=== PATIENT | female | born 1990 | race Asian ===

== ENCOUNTER 2023-12-11 12:05 | Emergency (ER) | payer OTHER, SELFPAY ==
[2023-12-11 12:08] VITALS: BP 121/91
[2023-12-11 12:35] LABS: % Basophils 0.1 % (0-2); % Eosinophils 5.3 % (0-6); % Immature Granulocytes 0.6 % (0-0.5); % Lymphocytes 19.3 % (20.5-51.1); % Monocytes 7.5 % (1.7-9.3); % Neutrophils 67.2 % (42.2-75.2); Absolute Eosinophils 0.4 10^3/uL (0-0.7); Absolute Lymphocytes 1.3 10^3/uL (1.2-3.4); Absolute Monocytes 0.5 10^3/uL (0.1-0.6); Absolute Neutrophils 4.7 10^3/uL (1.4-6.5); Hematocrit 34.6 % (37.0-47.0); Hemoglobin 11.2 g/dL (12.0-16.0); Mean Corp Hgb Conc. 32.4 g/dL (33.0-37.0); Mean Corpuscular Hgb 27.1 pg (27.0-31.0); Mean Corpuscular Volume 83.8 fL (81.0-99.0); Mean Platelet Volume 11.7 fL (7.4-10.4); Nucleated Red Blood Cells % 0 %; Platelet Count 237 10^3/uL (130-400); Red Blood Cell Count 4.13 10^6/uL (4.20-5.40); Red Cell Dist. Width 13.2 % (11.5-14.5); White Blood Cell Count 6.9 10^3/uL (4.8-10.8)
[2023-12-11 12:49] LABS: ALT (SGPT) 15 U/L (0-35); AST (SGOT) 24 U/L (14-36); Albumin 3.8 g/dl (3.5-5.0); Alkaline Phosphatase 107 U/L (38-126); Blood Urea Nitrogen 6 mg/dl (7-17); Calcium 9.1 mg/dl (8.4-10.2); Carbon Dioxide 17 mmol/L (22-30); Chloride 106 mmol/L (98-107); Glucose 107 mg/dl (70-99); Potassium 3.6 mmol/L (3.5-5.1); Sodium 131 mmol/L (135-145); Total Bilirubin 0.4 mg/dl (0.2-1.3); Total Protein 6.6 g/dl (6.3-8.2); eGFR > 60.00
--- NOTE | 2023-12-11 13:21 | ED.GENMED ---
History of Present Illness
<Garima Everett SOURCING COORDINATOR - Last Filed: 12/11/23 16:54>
General
Chief Complaint: Breathing Problem
Source: patient
Exam Limitations: none
Time Seen by Provider: 12/11/23 13:19
Nursing documentation reviewed up to this point in time: agreed with
Travel History
Have you had any contact with someone who has COVID-19?: No
Do you have any symptoms of coronavirus? Fever > 100 degrees, chills, cough, shortness of breath, sore throat, loss of taste or smell, muscle aches, or headache?: No
History of Present Illness
History of Present Illness:
33-year-old female 36 weeks and 3 days presents from [facility] for shortness of breath and dyspnea on exertion for the past 4 days. Breathing is worse at night and with wheezing. Used Albuterol inhaler past 3
nights with relief but last night it didn't help and she was up all night due to SOB. Feels palpitations, chest feels tight but no CP, States HR is typically in the 70's, has been in the 90's at home.
She states about 10 yrs ago had one 'asthma attack,' none since
Past History
<Garima Everett, SOURCING COORDINATOR - Last Filed: 12/11/23 16:54>
Past History
ED Past Medical History: None
ED Past Surgical History: None
Social History
Tobacco: Non-smoker
Alcohol: None
Personal:
Living: with family
Employment: Employed
Review of Systems
<Garima Everett, SOURCING COORDINATOR - Last Filed: 12/11/23 16:54>
Review of Systems
Allergies reviewed?: Yes
All Other Systems: ROS reviewed and negative except as documented in HPI and ROS
Constitutional: Reports fatigue; Denies fever
EENT: Denies sore throat
Respiratory: Reports trouble breathing; Denies cough
Cardiac: Reports chest pain (Chest feels 'tight.') and palpitations; Denies diaphoresis
ABD/GI: Denies abdominal pain, nausea, vomiting or diarrhea
: Denies dysuria, difficulty voiding or urgency
Musculoskeletal: Reports no symptoms
Skin: Reports no symptoms
Neurological: Reports no symptoms
Phy Exam
<Garima Everett, SOURCING COORDINATOR - Last Filed: 12/11/23 16:54>
Physical Exam
Physical Exam:
GENERAL: No acute distress. A&Ox3.
CONSTITUTIONAL: Afebrile.
EYES: clear, conjunctivae normal
ENMT: moist mucus membranes, Pharynx nl
RESPIRATORY: Regular respirations, mildly labored, lungs clear no wheezing. Pulse ox 100% RA
CARDIOVASCULAR: Regular rate and rhythm, no murmurs, no rubs. HR116
GI: Soft, nontender, normal BS, consitent with
MUSCULOSKELETAL: Moves with ease. Well perfused.
SKIN: Warm, dry, pink
PSYCH: Normal mood and affect. Well kept, interactive and appropriate
NEUROLOGIC: Awake, alert and oriented. No focal neurological deficits
Course
<Garima Everett, SOURCING COORDINATOR - Last Filed: 12/11/23 16:54>
Orders/Labs/Results
Orders:
Orders
12/11/23 12:11
EKG [Electrocardiogram (*1)] Urgent
Reason for Study: Shortness of Breath
EKG- Treatment ONCE
12/11/23 12:22
Type+Screen Urgent
CMP [Comprehensive Metabolic Panel] Urgent
Complete Blood Count/With Diff Urgent
12/11/23 13:26
Ipratropium/Albuterol Sulfate [Duoneb] 3 ml INH R NOW STA
12/11/23 13:47
D-Dimer Urgent
12/11/23 14:09
CT Chest Pe Study Urgent
Comment:
Reason For Exam: tachypnea, SOB, CP, tachycardia
12/11/23 15:46
NT-proBNP Urgent
Troponin I Urgent
12/11/23 16:24
Non-stress Test Urgent
Reason for Exam: OB Dr. Mckeon requested
Abnormal Lab Results
12/11/23 12/11/23
12: 13:47
RBC 4.13 L 10^6/uL
(4.20-5.40)
Hgb 11.2 L g/dL
(12.0-16.0)
Hct 34.6 L %
(37.0-47.0)
MCHC 32.4 L g/dL
(33.0-37.0)
MPV 11.7 H fL
(7.4-10.4)
Immature Gran % 0.6 H %
(0-0.5)
Lymphocytes % 19.3 L %
(20.5-51.1)
D-Dimer 0.96 H ug/mlFEU
(0.00-0.50)
Sodium 131 L mmol/L
(135-145)
Carbon Dioxide 17 L mmol/L
(22-30)
BUN 6 L mg/dl
(7-17)
Creatinine 0.4 L mg/dL
(0.6-1.0)
Glucose 107 H mg/dl
(70-99)
12/11/23 12:22
12/11/23 12:22
Vital Signs
Initial and Last Documented VS:
Initial Vital Signs
Temp Pulse Resp BP Pulse Ox
97.9 F 116 18 121/91 100
12/11/23 12:08 12/11/23 12:08 12/11/23 12:08 12/11/23 12:08 12/11/23 12:08
Last Documented Vital Signs
Temp Pulse Resp BP Pulse Ox
97.9 F 98 17 121/91 95
12/11/23 12:08 12/11/23 14:45 12/11/23 14:45 12/11/23 12:08 12/11/23 14:45
Window Installation Subcontractor consulted with Physician
Window Installation Subcontractor consulted with physician?: Yes
Name of Physician Consulted: Jose
<Zac Garcia MD - Last Filed: 12/11/23 15:23>
Orders/Labs/Results
Orders:
Orders
12/11/23 12:11
EKG [Electrocardiogram (*1)] Urgent
Reason for Study: Shortness of Breath
EKG- Treatment ONCE
12/11/23 12:22
Type+Screen Urgent
CMP [Comprehensive Metabolic Panel] Urgent
Complete Blood Count/With Diff Urgent
12/11/23 13:26
Ipratropium/Albuterol Sulfate [Duoneb] 3 ml INH R NOW STA
12/11/23 13:47
D-Dimer Urgent
12/11/23 14:09
CT Chest Pe Study Urgent
Comment:
Reason For Exam: tachypnea, SOB, CP, tachycardia
12/11/23 15:46
NT-proBNP Urgent
Troponin I Urgent
12/11/23 16:24
Non-stress Test Urgent
Reason for Exam: OB Dr. Mckeon requested
Abnormal Lab Results
12/11/23 12/11/23
12:22 13:47
RBC 4.13 L 10^6/uL
(4.20-5.40)
Hgb 11.2 L g/dL
(12.0-16.0)
Hct 34.6 L %
(37.0-47.0)
MCHC 32.4 L g/dL
(33.0-37.0)
MPV 11.7 H fL
(7.4-10.4)
Immature Gran % 0.6 H %
(0-0.5)
Lymphocytes % 19.3 L %
(20.5-51.1)
D-Dimer 0.96 H ug/mlFEU
(0.00-0.50)
Sodium 131 L mmol/L
(135-145)
Carbon Dioxide 17 L mmol/L
(22-30)
BUN 6 L mg/dl
(7-17)
Creatinine 0.4 L mg/dL
(0.6-1.0)
Glucose 107 H mg/dl
(70-99)
12/11/23 12:22
12/11/23 12:22
Vital Signs
Initial and Last Documented VS:
Initial Vital Signs
Temp Pulse Resp BP Pulse Ox
97.9 F 116 18 121/91 100
12/11/23 12:08 12/11/23 12:08 12/11/23 12:08 12/11/23 12:08 12/11/23 12:08
Last Documented Vital Signs
Temp Pulse Resp BP Pulse Ox
97.9 F 98 17 121/91 95
12/11/23 12:08 12/11/23 14:45 12/11/23 14:45 12/11/23 12:08 12/11/23 14:45
<Garima Everett, SOURCING COORDINATOR - Last Filed: 12/11/23 16:54>
MDM/Problems Addressed
Differential Diagnosis Includes:
PE, asthma attack, tachycardia could be side effect of using Albuterol, anxiety
MDM/Problems Addressed:
33-year-old female 36 weeks and 3 days presents from [facility] for shortness of breath and dyspnea on exertion for the past 3 days. Breathing is worse at night and with wheezing. Used Albuterol inhaler past 3
nights with relief but last night it didn't help and she was up all night due to SOB. Feels palpitations, chest feels tight but no CP, States HR is typically in the 70's, has been in the 90's at home.
She states about 10 yrs ago had one 'asthma attack,' none since
NAD, pulse ox 100% room air, heart rate 116, working hard to breath, tripod position, otherwise vital signs stable
EKG: NSR
1:45 PM
CBC with no clinically significant abnormality
CMP: Bicarb 17, patient is hyperpneic, otherwise normal
Dr. Garcia in to evaluate
With Duoneb able to sit back comfortably
3:41 PM
Initial preliminary read of chest CT by this examiner shows no obvious PE, awaiting radiology read.
Pt states she's feeling much better after duoneb
HR 86, not tachypneic, speaking w/o SOB, pulse ox 100% RA
4:07 PM
Radiology read PE study agrees with no evidence of central pulmonary embolism.
Contacted ON/[facility] Dr. Mckeon informed of today's results,
<Garima Everett NP - Last Filed: 12/11/23 16:54>
*Critical Care Note
Total Time (30-74mins, 75-104mins- exclusive of procedures): Not Applicable
ED Attending Note
<Garima Everett NP - Last Filed: 12/11/23 16:54>
-
Portions of this chart may have been created with voice recognition software.� Occasional wrong word or��sound alike� substitutions may have occurred due to the inherent limitations of voice recognition software.
<Zac Garcia MD - Last Filed: 12/11/23 15:23>
ED Attending Note
Patient seen and examined by attending physician: Yes
ED Attending Note:
I have seen and evaluated the patient with a [id number] encounter. I have spoken to the advance practicer provider and involved in the medical history, the physical exam, medical decision making.
Evaluation and management service: agree unless noted differently below.
Results interpretation: agree unless noted differently below.
Focused HPI: 33-year-old female who is 36 weeks and 3 days who follows with [facility] presents to the emergency room for dyspnea. Patient reports that she has felt increased shortness of breath over the past week she says much worse
over the past 3 days. She says that her symptoms seem to be worse at night but over the past few days they are consistent throughout the day. She says that she feels that she had some wheezing and coughing at night. She does have a history of
eczema and says that she was told that there was a possibility of asthma but she says the symptoms do not seem to improve with albuterol. She has not had any significant chest pain but she says she has some tightness in her chest. Apparently she
was seen by HALVER MACHINE OPERATOR today who referred her to the emergency room for assessment.
Physical exam: Patient is tachycardic; she is significantly tachypneic with a respiratory rate of 26-30. She seems to have conversational dyspnea she is speaking in shorter sentences. Her lungs are completely clear to auscultation bilaterally.
She has no notable lower extremity edema. She has no cardiac rubs gallops or murmurs.
Medical Decision Makin-year-old female 36 weeks presents with shortness of breath worsening over the past week which worsened the past few days. She arrives tachycardic and tachypneic but fortunately with normal pulse ox.
Normotensive. Exam as above. She did report some wheezing and coughing at night�although she has no wheezing here she was treated with a DuoNeb she had no improvement subjectively. Concern would be for alternate etiology of her symptoms given
that she has no wheezing, no strong history of asthma (she says that it is a dubious diagnosis, had 'attack' >5 years ago) and significant increase in her respiratory rate and heart rate. Differential would include pneumonia, cardiomyopathy, or
pulmonary embolism. I had a long discussion with the patient and I spoke about the risks and benefits associated with workup for her symptoms�ultimately after long discussion about best imaging study and diagnostic workup opted to pursue CT
angiogram to rule out pulmonary embolism and to better assess the lungs; patient prefers this option to starting with a chest x-ray as there would be a possibility that we would have to do CT anyways if chest x-ray nondiagnostic. We sent basic labs,
will send for CTA to rule out PE. Reassess after above.
Discharge Plan
Departure
Patient Disposition: Home (Routine Discharge)
Date of Disposition: 12/11/23
Time of Disposition: 16:47
Patient with high blood pressure during this ER visit?: No
Condition: Good
Discharge Problem:
Shortness of breath during
Instructions: Shortness of Breath (Dyspnea) (DC)
Referrals:
Anders Isabel MD [Family Provider] -
Activity Restrictions/Additional Instructions:
As we discussed, your lab work and Chest CT show nothing worrisome.
Not sure the cause of your shortness of breath, continue Albuterol inhaler as needed for wheezing.
[facility], they are expecting you for a Non Stress Test
Interventions
Interventions:
*Risk Screen - Suicide Last Done: 12/11/23 12:08
*General Assessment Last Done: 12/11/23 12:08
*Neglect/Abuse Screening Last Done: 12/11/23 12:08
ED- Fall Risk Assessment Last Done: 12/11/23 14:05
*ED COVID-19 Vaccine History Last Done: 12/11/23 12:08
ED- Cardiac Assessment Last Done: 12/11/23 14:05
ED- Pulmonary Assessment Last Done: 12/11/23 14:05
Discharge Date and Time
Print Language: VIET[place]ESE
[2023-12-11] MEDS: DUONEB 3 ML INH (13:45)
[2023-12-11 13:49] VITALS: BMI 30.3
[2023-12-11 14:25] LABS: D-Dimer 0.96 ug/mlFEU (0.00-0.50)
[2023-12-11 16:28] LABS: NT-proBNP 31.5 pg/ml; Troponin I < 0.012 ng/ml
== END 2023-12-11 16:58 | disposition home or self-care (01) ==
LOC: EMR 12:05
PROVIDERS: Registered Nurse; Student in an Organized Health Care Education/Training Program; EMERGENCY PHYSICIAN Emergency Medicine; FAMILY PHYSICIAN Internal Medicine
DX: O99.891 Other specified diseases and conditions complicating pregnancy (principal); R06.02 Shortness of breath
CPT/HCPCS: 99284; 94640; 59025; 71275; 80053; 83880; 84484; 85025; 85379; 86850; 86900; 86901; 93005; Q9967

== ENCOUNTER 2024-01-06 19:53 | Inpatient (IN) | payer OTHER, SELFPAY ==
[2024-01-06 20:11] VITALS: BMI 30.9
[2024-01-06 20:13] VITALS: BP 118/89
[2024-01-06 20:56] LABS: % Basophils 0.4 % (0-2); % Eosinophils 3.9 % (0-6); % Immature Granulocytes 0.7 % (0-0.5); % Lymphocytes 27.7 % (20.5-51.1); % Monocytes 7.5 % (1.7-9.3); % Neutrophils 59.8 % (42.2-75.2); Absolute Eosinophils 0.3 10^3/uL (0-0.7); Absolute Immature Granulocytes 0.1 10^3/uL (0-0.05); Absolute Monocytes 0.5 10^3/uL (0.1-0.6); Absolute Neutrophils 4.3 10^3/uL (1.4-6.5); Hematocrit 33.6 % (37.0-47.0); Hemoglobin 11.3 g/dL (12.0-16.0); Mean Corp Hgb Conc. 33.6 g/dL (33.0-37.0); Mean Corpuscular Hgb 26.3 pg (27.0-31.0); Mean Corpuscular Volume 78.3 fL (81.0-99.0); Mean Platelet Volume 11.7 fL (7.4-10.4); Nucleated Red Blood Cells % 0 %; Platelet Count 267 10^3/uL (130-400); Red Blood Cell Count 4.29 10^6/uL (4.20-5.40); Red Cell Dist. Width 14.1 % (11.5-14.5); White Blood Cell Count 7.2 10^3/uL (4.8-10.8)
[2024-01-06] MEDS: CYTOTEC 50 MICROGRAM VAG (21:01)
[2024-01-07] MEDS: FENTANYL/BUPIVACAINE 100 EPIDURAL (00:24)
[2024-01-07] MEDS: SUBLIMAZE 100 MCG EPIDURAL (00:24)
[2024-01-07] MEDS: PENICILLIN 110 UNITS IV (00:41)
[2024-01-07] MEDS: PITOCIN 30 UNITS/NSS 500 ML IV (03:35)
[2024-01-07] MEDS: METHERGINE INJECTION 0.200000000000000011 MG IM (03:36)
[2024-01-08 02:58] LABS: Hematocrit 31.2 % (37.0-47.0); Hemoglobin 10.3 g/dL (12.0-16.0)
[2024-01-08 14:27] LABS: Syphilis/T. pallidum Ab Reflex Negative (Negative)
== END 2024-01-08 13:10 | disposition home or self-care (01) | DRG 807 ==
LOC: LDRP 19:53
PROVIDERS: ADMITTING PHYSICIAN Obstetrics & Gynecology
PROC: 3E0P7VZ Introduction of Hormone into Female Reproductive, Via Natural or Artificial Opening (ICD-10-PCS; 2024-01-06)
PROC: 10E0XZZ Delivery of Products of Conception, External Approach (ICD-10-PCS; 2024-01-07)
PROC: 10907ZC Drainage of Amniotic Fluid, Therapeutic from Products of Conception, Via Natural or Artificial Opening (ICD-10-PCS; 2024-01-07)
DX: O48.0 Post-term pregnancy (principal); Z37.0 Single live birth; Z3A.40 40 weeks gestation of pregnancy; J45.909 Unspecified asthma, uncomplicated; O99.824 Streptococcus B carrier state complicating childbirth; O69.2XX0 Labor and delivery complicated by other cord entanglement, with compression, not applicable or unspecified
CPT/HCPCS: 85014; 85018; 85025; 86780; 86850; 86900; 86901